=== PATIENT | female | born 2000 | race Caucasian/White ===

== ENCOUNTER 2021-09-22 04:32 | Inpatient (IN) | payer MEDICAID ==
[2021-09-22] VITALS (54 sets, daily range): BP systolic 91–144; BP diastolic 8–93; PULSE 75–123; TEMP 97.8–98.8
[~2021-09-22] VITALS: Ht 160 cm; Wt 79.5 kg
--- NOTE | 2021-09-22 04:39 | NUR ---
PT BROUGHT TO UNIT IN WHEELCHAIR. PT PRESENTS COMPLAINING OF CTX Q5 STARTING AT 0100 AND POSSIBLE LEAKING OF FLUIDS AFTER USIGN THE RESTROOM AT APPROX. 0100. PT IS 40.2 WEEKS, , GBS-, RI, O+. PT DENIES DECREASED MOVEMENT OR VAGINAL BLEEDING. PT SHOWN TO LDR 3 BY THIS RN AND INSTRUCTED TO PUT ON GOWN.
--- NOTE | 2021-09-22 04:45 | NUR ---
EFM AND TOCO APPLIED.
--- NOTE | 2021-09-22 05:00 | NUR ---
AMNITEST PERFORMED AT THIS TIME. NO CHANGE IN COLOR OF AMNITEST. NO VISIBLE SIGNS OF LEAKING OF FLUIDS DURING CERVICAL EXAM. PADS DRY UNDER PATIENT. PT DENIES HAVING TO WEAR A PAD FOLLOWING LEAKING OF FLUID AT APPROX 0100 OR ANY MORE LEAKING FOLLOWING.
[2021-09-22] MEDS ORDERED: PRENATAL 191 CTB (05:11)
--- NOTE | 2021-09-22 05:41 | NUR ---
VISIBLE BREAKS IN FHTS ARE OBSERVED WHILE MOTHER IS UP ON BIRTHING BALL. RN AT BEDSIDE TO ADJUST MONITOR AND ASSIST PATIENT BACK IN BED ON LEFT LATERAL SIDE
--- NOTE | 2021-09-22 07:00 | NUR ---
07- Dr. Aikne updated on pt. See physician notification. 0714- Dr. Aiken to bedside and reviews plan of care with pt and SO. Pt requesting epidural. Eddie Plaza BEAD BUILDER notified. LR bolus infusing. 0738- Eddie Plaza BEAD BUILDER to bedside. Pt to edge of bed for SHIELA. FHR tracing intermittently due to maternal position. RN remains at bedside adjusting EFM. 0805- Patient wedge right. EFM adjusted and tracing well. Plan of care and safety precautions reviewed. Pt verbalizes understanding.
[2021-09-22 07:37] LABS: BASO # 0.1 K/mm3 (0.0-0.2); BASO % 0.4 % (0.0-2.0); GRAN # 13.4 K/mm3 (1.4-6.5); GRAN % 83.9 % (42.2-75.2); HEMATOCRIT 36.6 % (37.0-47.0); HEMOGLOBIN 12.6 g/dl (12.5-16.0); LYMPH # 1.4 K/mm3 (1.2-3.4); LYMPH % 8.8 % (20.0-51.0); MEAN CELL VOLUME 92 fl (80.0-100.0); MEAN CORPUSCULAR HEMOGLOBIN 32 pg (27-31); MEAN CORPUSCULAR HGB CONC 34 g/dl (33.0-37.0); MEAN PLATELET VOLUME 13.1 fl (7.4-10.4); PLATELET COUNT 188 K/mm3 (130-400); RED BLOOD COUNT 3.97 M/mm3 (4.10-5.30); REDCELL DISTRIBUTION WIDTH-CV 14.2 % (11.5-14.5)
--- NOTE | 2021-09-22 09:15 | NUR ---
Bilaterl side lying hip release.
[2021-09-22 09:17] LABS: TRICYCLIC ANTIDEPRESS URINE NEGATIVE
--- NOTE | 2021-09-22 10:16 | NUR ---
1016- FHR decel to 70bmp. RN to bedside. LR bolus initiated, pt to right lateral. SVE 6/90/-2. 1020- 4 min prolonged FHR decel resolves with position change and LR bolus. Dr. Aiken updated on pt. See physician notification. Plan of care reviewed with pt and SO who verbalize understanding.
--- NOTE | 2021-09-22 12:30 | NUR ---
Right lateral exaggerated runners.
--- NOTE | 2021-09-22 14:35 | NUR ---
Eddie Plaza PHYSICAL THERAPY COORDINATOR at bedside and doses epidural.
--- NOTE | 2021-09-22 15:30 | NUR ---
Patient noted to be tense with ctx, and reporting increased rectal pressure. Epidural bolus by pt x2 with no relief. Eddie Plaza PRODUCT SAFETY CONSULTANT notified. Eddie Plaza CRNA will be to bedside to evaluate pt.
--- NOTE | 2021-09-22 15:41 | NUR ---
1541- Patient reports increased rectal pressure. SVE C/+2. Dr. Aiken updated on pt. See physician notification. 1551- Nuñez out. Patient begins to push with contractions with RN at bedside. Strong maternal effort. Moves vertex well 164- Dr. Aiken to bedside for delivery. 164- Spontaneous vaginal delivery of viable male infant. Nuchal cord x1 reduced on perineum. Nares and mouth bulb suctioned by Dr. Aiken. Pitocin paused. 165- Cord clamped x2 and cut by father of . Care of assumed by Delma Son RN. Cord gases collected for mec stained fluid. 165- Spontaneous and intact delivery of placenta. Pitocin to 333ml/hr per orders. Left labial lac repaired by Dr. Aiken. Minimal locha noted. 1700- Elham care provided, pads changed and ice pack to perineum. Plan of care and safety precautions reviewed with pt who verbalizes understanding. See doctor dictation, anesthesia record, and nurses notes.
--- NOTE | 2021-09-22 20:00 | NUR ---
Pt unable to ambulate due to numbness in right leg. Straight cath completed. Elham-care provided. Pt assisted to wheelchair and wheeled to room. Pt oriented to room. Call light within reach.
[2021-09-23] VITALS: BP 115/56; PULSE 80; TEMP 98.1
[2021-09-23 05:00] VITALS: BP 103/51; PULSE 87; TEMP 98.2
[2021-09-23 07:30] VITALS: BP 103/57; PULSE 75; TEMP 98
--- NOTE | 2021-09-23 09:17 | NUR ---
dry house worker consulted for past use of THC. Patient and her life partner Semaj lived in [place] prior to moving to the area and admit to using THC recreational use. Once she found out she was she stopped. This is the first child for both parents. Patient has a history of anxiety that is currently being treated and she has no concerns about. Semaj is the father of the baby and is present at bedside and actively engaged in the conversation. They currently live together and reports that they have all supplies the baby will need. Only reported need is wipes at this time. Informed patient's RN of need upon discharge. Collaborated with the patient's RN who has no concerns at this time.
[2021-09-23 15:12] VITALS: BP 104/59; PULSE 77; TEMP 97.9
[2021-09-23 19:15] VITALS: BP 97/59; PULSE 66; TEMP 98.5
--- NOTE | 2021-09-24 04:45 | NUR ---
REPORT GIVEN TO Keya CARRINGTON RN AND CARE WAS TRANSFERRED
--- NOTE | 2021-09-24 04:45 | NUR ---
Assumed care of pt at this time.
[2021-09-24 08:15] VITALS: BP 106/65; PULSE 84; TEMP 98.7
[2021-09-24] MEDS ORDERED: MOTRIN 800800 MG/TAB PO (08:57)
--- NOTE | 2021-09-24 09:35 | NUR ---
Initial visit attempt; Family resting, Employment Instructional Associate left card of congratulations for the of her son and information regarding the availability of spiritual care at [facility].
[2021-09-24 16:00] VITALS: BP 103/60; PULSE 85; TEMP 98.4
== END 2021-09-24 18:45 | disposition home or self-care (01) | DRG 807 ==
LOC: LDRO 04:32 → LDR 07:19 → OB 07:19
PROVIDERS: ADMIT Obstetrics & Gynecology
PROC: 10E0XZZ Delivery of Products of Conception, External Approach (ICD-10-PCS; principal; 2021-09-22)
PROC: 0UQMXZZ Repair Vulva, External Approach (ICD-10-PCS; 2021-09-22)
DX: O77.0 Labor and delivery complicated by meconium in amniotic fluid (principal); Z37.0 Single live birth; O70.0 First degree perineal laceration during delivery; O69.81X0 Labor and delivery complicated by cord around neck, without compression, not applicable or unspecified; Z3A.40 40 weeks gestation of pregnancy
CPT/HCPCS: J2405; J2590; J2795; J7120